=== PATIENT | male | born 1975 | race Caucasian/White ===

== ENCOUNTER 2017-10-09 08:50 | Emergency (ER) | payer MEDICAID | END 2017-10-09 11:15 | disposition home or self-care (01) | LOC: D.ER 08:50 | DX: S05.01XA Injury of conjunctiva and corneal abrasion without foreign body, right eye, initial encounter (principal); X58.XXXA Exposure to other specified factors, initial encounter; Y93.89 Activity, other specified; Y92.019 Unspecified place in single-family (private) house as the place of occurrence of the external cause ==

== ENCOUNTER 2019-07-03 15:29 | Emergency (ER) | payer MEDICAID ==
[~2019-07-03] VITALS: Ht 182.9 cm; Wt 77.3 kg
[2019-07-03 15:53] VITALS: Ht 182.9 cm; Wt 77.3 kg
[2019-07-03] MEDS ORDERED: ULTRAM50 MG PO (20:03)
[2019-07-03] MEDS ORDERED: VOLTAREN75 MG PO (20:03)
[2019-07-03 20:20] VITALS: BP 117/68
== END 2019-07-03 20:20 | disposition home or self-care (01) ==
LOC: D.ER 15:29
DX: S62.306A Unspecified fracture of fifth metacarpal bone, right hand, initial encounter for closed fracture (principal); W22.01XA Walked into wall, initial encounter; F17.210 Nicotine dependence, cigarettes, uncomplicated

== ENCOUNTER 2019-11-07 09:08 | Emergency (ER) | payer MEDICAID ==
[~2019-11-07] VITALS: Ht 182.9 cm; Wt 70.5 kg
[~2019-11-07 09:08] MED LIST: ULTRAM50 MG PO; VOLTAREN75 MG PO
[2019-11-07 09:17] VITALS: Ht 182.9 cm; Wt 70.5 kg
[2019-11-07] MEDS ORDERED: CYCLOBENZAPRINE10 MG PO (10:25)
[2019-11-07 11:04] VITALS: BP 104/68
== END 2019-11-07 11:05 | disposition home or self-care (01) ==
LOC: D.ER 09:08
DX: T14.8XXA Other injury of unspecified body region, initial encounter (principal); M25.512 Pain in left shoulder

== ENCOUNTER 2019-12-27 21:02 | Emergency (ER) | payer MEDICAID ==
[~2019-12-27] VITALS: Ht 182.9 cm; Wt 72.7 kg
[~2019-12-27 21:02] MED LIST changes: +CYCLOBENZAPRINE10 MG PO
[2019-12-27 21:10] VITALS: Ht 182.9 cm; Wt 72.7 kg
[2019-12-27] MEDS ORDERED: MUPIROCIN22 GM TOPICAL (21:41)
[2019-12-27] MEDS ORDERED: MOBIC7.5 MG PO (21:41)
[2019-12-27] MEDS ORDERED: VIBRAMYCIN 100100 MG PO (21:41)
[2019-12-27 22:05] VITALS: BP 106/52
== END 2019-12-27 22:05 | disposition home or self-care (01) ==
LOC: D.ER 21:02
DX: J34.0 Abscess, furuncle and carbuncle of nose (principal)